=== PATIENT | female | born 1955 | race Caucasian/White ===

== ENCOUNTER 2016-07-21 10:44 | Emergency (ER) | payer OTHER ==
[2016-07-21 12:31] VITALS: BP 111/74
--- NOTE | 2016-07-21 13:10 | UC ---
Respiratory Complaint HPI - HPI Summary HPI Summary: About 5 days ago started with lots of nasal and sinus congestion/drainage, now in the last day or two harsh cough has become more prominent. Denies fever or trouble breathing, no hx of lung disease. Does take care of young grandson on weekends and has had frequent URIs this winter and spring. - History of Current Complaint Chief Complaint: UCRespiratory Stated Complaint: RESP ISSUE CONGESTION Time Seen by Provider: 07/21/16 12:53 Hx Obtained From: Patient ?: No Onset/Duration: Gradual Onset, Lasting Days Timing: Constant Severity Initially: Mild Severity Currently: Moderate Character: Cough: Productive Aggravating Factors: Exertion, Deep Breaths Alleviating Factors: Upright Position Associated Signs And Symptoms: Positive: URI, Nasal Congestion. Negative: Fever , Hoarseness - Allergies/Home Medications Allergies/Adverse Reactions: Allergies Allergy/AdvReac Type Severity Reaction Status Date / Time No Known Allergies Allergy Verified 07/21/16 12:31 Home Medications: Home Medications NK [No Home Medications Reported] 07/21/16 [History Confirmed 07/21/16] PMH/Surg Hx/FS Hx/Imm Hx Psychological History Of: Reports: Depression - HX OF IN THE PAST - Surgical History Surgical History: Yes Surgery Procedure, Year, and Place: LASIK EYE SURGERY - Family History Known Family History: Negative: Blood Disorder - Social History Lives: With Family Alcohol Use: Occasionally Substance Use Type: None Smoking Status (MU): Former Smoker Amount Used/How Often: 1/2 PPD X 10 YEARS When Did the Patient Quit Smoking/Using Tobacco: 28 YEARS AGO Review of Systems Constitutional: Fatigue Skin: Negative Eyes: Negative ENT: Sore Throat, Nasal Discharge Respiratory: Cough Cardiovascular: Negative Gastrointestinal: Negative Genitourinary: Negative Motor: Negative Neurovascular: Negative Musculoskeletal: Negative Neurological: Negative Psychological: Negative All Other Systems Reviewed And Are Negative: Yes Physical Exam Triage Information Reviewed: Yes Appearance: Well-Appearing, No Pain Distress, Well-Nourished Vital Signs: Initial Vital Signs Temp 98.4 F 07/21/16 12:28 Pulse 61 07/21/16 12:28 Resp 16 07/21/16 12:28 BP 111/74 07/21/16 12:28 Pulse Ox 100 07/21/16 12:28 Vital Signs Reviewed: Yes Eye Exam: Normal Eyes: Positive: Conjunctiva Clear ENT: Positive: Pharynx normal, Nasal congestion, Nasal drainage, TMs normal. Negative: Tonsillar swelling, Tonsillar exudate - s/p tonsillectomy Dental Exam: Normal Dental: Negative: Percussion Tenderness @ Neck exam: Normal Respiratory Exam: Other - harsh cough noted Respiratory: Positive: Chest non-tender, Lungs clear, Normal breath sounds, No respiratory distress, No accessory muscle use Cardiovascular Exam: Normal Cardiovascular: Positive: RRR, No Murmur Musculoskeletal Exam: Normal Neurological Exam: Normal Neurological: Positive: Alert Psychological Exam: Normal Skin Exam: Normal UC Diagnostic Evaluation - Laboratory O2 Sat by Pulse Oximetry: 100 Respiratory Course/Dx - Course Course Of Treatment: Offered pt albuterol inhaler and codeine for cough, pt does not feel these are necessary at this point. Discussed s/sx of ABRS, pt will return or see PCP if sx persist or worsen. - Differential Dx/Diagnosis Provider Diagnoses: URI, likely viral Discharge - Discharge Plan Condition: Stable Disposition: HOME Patient Education Materials: Upper Respiratory Infection (ED) Additional Instructions: CHEST COLD (BRONCHITIS) You have an an infection or inflammation of the air passageways in your lungs. Symptoms usually include cough, low grade fever, shortness of breath, and wheezing. The cough usually persists for a couple of weeks, sometimes longer. We used to think antibiotics were necessary to treat bronchitis, but studies have shown that respiratory viruses cause the disease in the vast majority of cases. Like head colds, most cases of bronchitis get better without antibiotics. We may prescribe antibiotics if we believe bacteria are damaging your airways, or if there's high risk the bronchitis will worsen into pneumonia (such as for individuals with emphysema or other lung disease). Increase your fluid intake. A cool mist humidifier may make your lungs more comfortable. An expectorant (cough medicine that loosens phlegm) can help. Recovery from bronchitis can be somewhat slow, but you should not have any significant worsening or new fevers. As long as you can breathe easily and you continue to have steady improvement, it is not important how many days it takes you to get better. Call or return if you develop increasing fever, shortness of breath, chest pain , bloody sputum, or otherwise worsen. If you have not improved at all after several days, contact your primary care physician or return here.
== END 2016-07-21 13:16 | disposition home or self-care (01) ==
LOC: UCEAST 10:44
DX: J06.9 Acute upper respiratory infection, unspecified (principal)
CPT/HCPCS: 99211; G0463

== ENCOUNTER 2017-01-12 07:48 | Day surgery (SDC) | payer OTHER ==
[~2017-01-12 07:48] MED LIST: Buffered Lidocaine 0.9% SYRIN* 5 ML/SYR SYRINGE INTRADERM ONE
[2017-01-12] MEDS ORDERED: ceFAZolin 2 GM PREMIX (*) 2 GM/50 ML BAG IVPB ONE (08:10)
[2017-01-12] MEDS ORDERED: Buffered Lidocaine 0.9% SYRIN* 5 ML/SYR SYRINGE ONE (08:10)
[2017-01-12] MEDS ORDERED: fentaNYL* 50 MCG/ML 2 ML VIAL (100 MCG VIAL) ONE (08:52)
[2017-01-12] MEDS ORDERED: Midazolam* 1 MG/ML 2 ML VIAL (2 MG) ONE (08:52)
[2017-01-12] MEDS ORDERED: Lidocaine 1% INJ* 10 MG/ML 30 ML SDV ONE (08:56)
[2017-01-12] MEDS ORDERED: Dexamethasone IV* 4 MG/ML 1 ML (4 MG) ONE (08:56)
[2017-01-12] MEDS ORDERED: Bupivacaine 0.5% SDV PF* 30 ML VIAL ONE (08:57)
[2017-01-12] MEDS ORDERED: Ondansetron INJ* 2 MG/ML VIAL IV PRN (09:11)
[2017-01-12] MEDS ORDERED: Propofol* 10 MG/ML 20 ML BTL IV PUSH ONE (09:25)
[2017-01-12] MEDS ORDERED: Phenylephrine IV* 40 MCG/ML 10 ML SYRINGE ONE (10:22)
[2017-01-12 11:16] VITALS: BP 114/81
--- NOTE | 2017-01-12 13:10 | OP ---
DATE OF OPERATION: 01/12/17 - [facility] DATE OF : 57 SURGEON: Murali Kraft DPM STEEL MANAGER: None. ANESTHESIA: MAC with local. PRE-OP DIAGNOSIS: Painful bunion deformity with hallux limitus, left foot. POST-OP DIAGNOSIS: Painful bunion deformity with hallux limitus, left foot. OPERATIVE PROCEDURE: Bunionectomy with first metatarsal osteotomy and screw fixation in the left foot. PATHOLOGY: Degenerative bone. HEMOSTASIS: Pneumatic ankle tourniquet. ESTIMATED BLOOD LOSS: Less than 20 mL. MATERIALS: 3.0 mm cannulated Saniya screw. INDICATIONS: The patient with chronic and progressive left great toe joint pain and deformity with hypertrophic bone at the medial and dorsal aspect of the first metatarsal head, degenerative changes and lateral deviation of the great toe and chronic pain associated with the joint while walking and wearing shoes. She opts for surgery at this time to attempt to decrease the pain and improve her function. DESCRIPTION OF PROCEDURE: The patient was brought to the operating room, placed on the operating room table in supine position. The anesthesia department administered IV sedation and a peripheral nerve block was performed about the left forefoot with a 1:1 mixture of 1% lidocaine plain and 0.5% Marcaine plain. The left foot was prepped and draped in usual fashion. Next, the left foot was exsanguinated with an Esmarch bandage and pneumatic ankle tourniquet was inflated to 250 mmHg above a well-padded left ankle. Attention was directed to the dorsomedial aspect of the left great toe joint, where a curvilinear incision was made. The incision was deepened through subcutaneous tissues with care being taken to retract neurovascular structures and cauterize the superficial bleeders as needed. An inverted L capsular incision was made to allow for exposure of the joint. There was noted to be hypertrophic bone at the dorsal and medial aspect of the first metatarsal head. There was also noted to be partial and full thickness cartilaginous erosions, primarily at the medial aspect of the first metatarsal head and the respective medial base of the proximal phalanx. There was also noted to be some osteophytes around the dorsal and medial aspect of the base of the proximal phalanx. Next, a McGlamry elevator was needed to free plantar lateral adhesions and an intracapsular lateral release was performed. The extensor hallucis brevis tendon was also identified and transected. This allowed for relaxation of all lateral contractures. Next, a sagittal saw was used to resect the hypertrophic bone from the dorsal and medial aspect of the first metatarsal head and a rongeur was used to resect osteophytes in the base of the proximal phalanx. Next, a modified Chevron type first metatarsal osteotomy was performed with the apex just dorsal and proximal to the geometric center of the first metatarsal head. The plantar wing was cut, angled slightly plantar proximally to allow for some plantar flexion of the capital fragment. The dorsal wing was then cut and the capital fragment was transposed to the desired corrected position. Temporary fixation was achieved with the wire from screw set and the position was assessed with a C-arm. Next, using standard technique, a 3.0 mm Tapad cannulated screw was placed across the osteotomy site with care being taken to ensure that the tip of the screw did not penetrate into the joint. Temporary fixation was removed and the osteotomy was found to be solid with no detectable motion or gapping. The screw was 2 fingers tight. The C-arm was used to assess correction and fixation. The power davina was used to smoothen rough edges and the surgical site was flushed with copious amounts of normal sterile saline. A medial capsulorrhaphy was performed, resecting the redundant medial capsule. The capsule and periosteal tissues were reapproximated and secured with 2-0 Vicryl with holding the hallux in rectus position. The subcutaneous tissues were reapproximated with 4-0 Vicryl and skin was approximated with 5-0 nylon. A 12 mg of dexamethasone phosphate was infiltrated about the surgical site and the surgical site was dressed with 4x4 gauze, Xiomy, and light Coban wrap. The pneumatic ankle tourniquet was deflated about the left ankle and a prompt hyperemic response was noted in all 5 digits of the patient's left foot. Having appeared to have tolerated the procedures and anesthesia well, the patient was transported via cart from the operating room to Recovery in satisfactory condition. Capillary refill less than 3 seconds to all digits of the left foot. [id number]/[facility] #: [id number] [facility]
--- NOTE | 2017-01-13 12:51 | RAD ---
INDICATION: Left foot, no other history is provided COMPARISONS: None relevant TECHNIQUE: Fluoroscopy was provided for a surgical procedure. Total fluoroscopy time is: 24 seconds FINDINGS: Spot images demonstrate internal fixation of the first metatarsal. IMPRESSION: FLUOROSCOPY WAS PROVIDED FOR A SURGICAL PROCEDURE CPT II Codes: 6045F
== END 2017-01-12 12:07 | disposition home or self-care (01) ==
LOC: OREAST 07:48
PROVIDERS: ATTEND Podiatrist Foot Surgery
DX: M21.612 Bunion of left foot (principal); M20.5X2 Other deformities of toe(s) (acquired), left foot; M25.775 Osteophyte, left foot
CPT/HCPCS: 76000; 88304; 88311; C1713; C1776; J0690; J1100; J2001; J2250; J2704; J3010

== ENCOUNTER 2017-06-29 06:26 | Day surgery (SDC) | payer OTHER ==
[~2017-06-29 06:26] MED LIST changes: +Dexamethasone IV* 4 MG/ML 1 ML (4 MG) IV SLOW PU ONE; +Famotidine IV* 10 MG/ML 2 ML (20 mg) IV ONE
[2017-06-29] MEDS ORDERED: ceFAZolin 2 GM PREMIX (*) 2 GM/50 ML BAG IVPB ONE (06:35)
[2017-06-29] MEDS ORDERED: Famotidine TAB* 20 MG ONE (06:35)
[2017-06-29] MEDS ORDERED: Dexamethasone IV* 4 MG/ML 1 ML (4 MG) ONE ×2 (06:35→07:09)
[2017-06-29] MEDS ORDERED: Lidocaine 1% INJ* 10 MG/ML 30 ML SDV ONE (07:08)
[2017-06-29] MEDS ORDERED: Midazolam* 1 MG/ML 2 ML VIAL (2 MG) ONE (07:08)
[2017-06-29] MEDS ORDERED: fentaNYL* 50 MCG/ML 2 ML VIAL (100 MCG VIAL) ONE (07:08)
[2017-06-29] MEDS ORDERED: Bupivacaine 0.5% SDV PF* 10-30ML VIAL ONE (07:09)
[2017-06-29] MEDS ORDERED: PROCHLORPERAZINE INJ 5 MG/ML 2 ML VIAL IV PRN (07:15)
[2017-06-29] MEDS ORDERED: oxyCODONE TAB* 5 MG TAB PO PRN (07:15)
[2017-06-29] MEDS ORDERED: oxyCODONE/Acetamin 5/325 MG* TAB PO PRN (07:15)
[2017-06-29] MEDS ORDERED: fentaNYL* 50 MCG/ML 2 ML VIAL (100 MCG VIAL) IV PRN (07:15)
[2017-06-29] MEDS ORDERED: Ondansetron INJ* 2 MG/ML VIAL IV PRN (07:15)
[2017-06-29] MEDS ORDERED: Acetaminophen TAB* 325 MG PO PRN (07:15)
[2017-06-29] MEDS ORDERED: Naloxone* 0.4 MG/ML 1 ML VIAL IV PRN (07:15)
[2017-06-29] MEDS ORDERED: HYDROmorphone INJ* 1 MG/ML CARPUJECT SYRINGE IV PRN (07:15)
[2017-06-29] MEDS ORDERED: Lidocaine 2% PF * 5 ML VIAL ONE (07:53)
[2017-06-29] MEDS ORDERED: Ketorolac INJ* 30 MG/ML 1 ML VIAL ONE (07:53)
[2017-06-29] MEDS ORDERED: Propofol* 10 MG/ML 20 ML BTL IV PUSH ONE (07:53)
[2017-06-29] MEDS ORDERED: Sodium Chloride 0.9%* 10 ML ONE (07:57)
[2017-06-29] MEDS ORDERED: EPHEDrine (Pressors)* 50 MG/ML VIAL ONE (07:57)
[2017-06-29 08:38] VITALS: BP 121/87
--- NOTE | 2017-06-29 10:43 | OP ---
OPERATIVE REPORT: DATE OF OPERATION: 06/29/17 DATE OF : 57 SURGEON: Murali Kraft DPM GRAD[address] 6 [address] TEACHER: None. ANESTHESIA: MAC with local. PRE-OP DIAGNOSIS: Painful bunion with hallux limitus, right foot. POST-OP DIAGNOSIS: Painful bunion with hallux limitus, right foot. OPERATIVE PROCEDURE: Cheilectomy, right great toe joint. PATHOLOGY: Degenerative bone and synovitis from right great foot toe joint. HEMOSTASIS: Pneumatic ankle tourniquet. ESTIMATED BLOOD LOSS: Less than 5 mL. INDICATIONS: The patient with chronic right forefoot pain and deformity about the right great toe letty int with hypertrophied bone medially and dorsally, decreased range of motion, mild lateral deviation of the great toe, pain with walking and wearing shoes. She opts for surgery at this time to attempt to decrease the pain and improve her function. DESCRIPTION OF PROCEDURE: The patient was brought to the operating room, placed on the operating niles m table in supine position. The anesthesia department administered IV sedation and a peripheral nerv e block was performed about the right foot with a 1:1 mixture of 1% lidocaine plain and 0.5% Marcaine plain. The right foot was then prepped and draped in usual fashion. The right foot was then exsang uinated with an Esmarch bandage and pneumatic ankle tourniquet was inflated to 250 mmHg above a well- padded right ankle. Attention was directed to the dorsomedial aspect of the right great toe joint, w here a linear incision was made. The incision was deepened through subcutaneous tissues with care carie ng taken to retract neurovascular structures and cauterize the superficial bleeders as needed. This w as carried down to the right great toe joint where inverted L capsular incision was made. This allow ed exposure of the joint. There was noted to be hypertrophied bone and osteophytes at the dorsomedia l and medial aspect of the 1st metatarsal head. Also some mild osteophyte proliferation at the adjac ent base of the proximal phalanx of the right great toe. There was also noted to be proximal full th ickness cartilaginous erosions in the 1st metatarsal head medial to the arnoldo, more distal and fully plantar orientation. The sesamoid apparatus also had some adhesions, which were freed with a McGlam ry elevator. Dissection carried into the 1st metatarsal space where a traditional lateral release wa s performed. The extensor hallucis brevis tendon was also identified and transected. This allowed f or relaxation of all lateral contractures. Next, using a sagittal saw the osteophytes were resected off the 1st metatarsal head and a rongeur was used to also resect the osteophytes from the base of th e proximal phalanx. A power davina was used to smooth rough edges. The surgical site was flushed with copious amounts of normal sterile saline. The cartilaginous surface of the 1st metatarsal head and the base of the proximal phalanx was inspected. No loose cartilage was identified. The medial capsul orrhaphy was performed resecting a small amount of the redundant medial capsule. Some of the specime n that was also sent with included some hypertrophic synovitis, which is debrided from the dorsal asp ect of the joint. The surgical site was again flushed with copious amounts of normal sterile saline and the periosteal and capsular tissues were reapproximated and secured with 2-0 Vicryl. Subcutaneou s tissues were reapproximated in layers with 4-0 Vicryl and skin was reapproximated and secured with 5-0 nylon. 12 mg dexamethasone phosphate was infiltrated about the surgical site and the incision wa s dressed with Xeroform gauze and a leg compression dressing consisting of 4 x 4 gauze, Xiomy, and li ght Coban wrap. The pneumatic ankle tourniquet was deflated about the right ankle and a prompt hype remic response was noted in all 5 digits of the patient's right foot. Having appeared to have tolerat ed the procedure and anesthesia well, the patient was transported via cart from the operating room to Recovery in satisfactory condition with cap refill less than 3 seconds to all digits of the right fo ot. [id number]/[facility] #: [id number]
== END 2017-06-29 09:00 | disposition home or self-care (01) ==
LOC: OREAST 06:26
PROVIDERS: ATTEND Podiatrist Foot Surgery
DX: M21.611 Bunion of right foot (principal); M20.5X1 Other deformities of toe(s) (acquired), right foot; Z87.891 Personal history of nicotine dependence
CPT/HCPCS: 88304; 88311; A9270-GY; J0690; J1100; J1885; J2250; J2704; J3010

== ENCOUNTER 2019-02-14 09:57 | Day surgery (SDC) | payer OTHER ==
[~2019-02-14 09:57] MED LIST changes: -Buffered Lidocaine 0.9% SYRIN* 5 ML/SYR SYRINGE INTRADERM ONE; +Buffered Lidocaine 1% SYRIN* 1 ML/SYRINGE INTRADERM ONE; -Dexamethasone IV* 4 MG/ML 1 ML (4 MG) IV SLOW PU ONE; +Lactated Ringers 1000 ML Bag* 1,000 ML IV SCH
[2019-02-14] MEDS ORDERED: ceFAZolin 2 GM PREMIX in ORs 2 GM/50 ML BAG ONE (10:32)
[2019-02-14] MEDS ORDERED: Famotidine IV* 10 MG/ML 2 ML (20 mg) ONE (10:34)
[2019-02-14] MEDS ORDERED: Lidocaine 1% INJ* 10 MG/ML 30 ML SDV ONE (11:43)
[2019-02-14] MEDS ORDERED: Dexamethasone IV* 4 MG/ML 1 ML (4 MG) ONE (11:44)
[2019-02-14] MEDS ORDERED: Bupivacaine 0.5% SDV PF* 30ML VIAL ONE (11:44)
[2019-02-14] MEDS ORDERED: Acetaminophen TAB* 325 MG PO PRN (11:54)
[2019-02-14] MEDS ORDERED: DiMENhydriNATE IV* 50 MG/ML VIAL IV PUSH PRN (11:54)
[2019-02-14] MEDS ORDERED: oxyCODONE TAB* 5 MG TAB PO PRN (11:54)
[2019-02-14] MEDS ORDERED: Naloxone* 0.4 MG/ML 1 ML VIAL IV PRN (11:54)
[2019-02-14] MEDS ORDERED: Midazolam* 1 MG/ML 5 ML VIAL (5 MG) ONE (12:01)
[2019-02-14] MEDS ORDERED: Ketorolac INJ* 30 MG/ML 1 ML VIAL ONE (12:26)
[2019-02-14] MEDS ORDERED: Ondansetron INJ* 2 MG/ML VIAL ONE (12:26)
[2019-02-14] MEDS ORDERED: Propofol* 10 MG/ML 20 ML BTL ONE (12:26)
[2019-02-14] MEDS ORDERED: Lidocaine 2% PF * 5 ML VIAL ONE (12:27)
[2019-02-14] MEDS ORDERED: HYDROmorphone INJ* 0.5 MG/0.5 ML SYRINGE ONE (12:28)
[2019-02-14 14:03] VITALS: BP 117/85
--- NOTE | 2019-02-14 21:45 | OP ---
DATE OF OPERATION: 02/14/19 [facility] DATE OF : 57 SURGEON: Murali Kraft DPM. OTOLARYNGOLOGY SURGEON: None. ANESTHESIA: MAC with local. PRE-OP DIAGNOSIS: Bunion deformity with hallux limitus, right foot. POST-OP DIAGNOSIS: Bunion deformity with hallux limitus, right foot. OPERATIVE PROCEDURE: Bunionectomy with first metatarsal osteotomy, right foot. PATHOLOGY: Degenerative bone. HEMOSTASIS: Pneumatic ankle tourniquet. ESTIMATED BLOOD LOSS: Less than 20 cc. MATERIALS: A 3.0-mm cannulated Saniya screw. INDICATIONS: The patient with chronic and progressive right great toe joint pain, stiffness, and bunion deformity. She had previous cheilectomy to address some osteophyte and arthritic changes. She has continued to have pain and has been determined that alignment of the joint needs to be improved to address the bunion deformity. The patient opts for surgery at this time to attempt to decrease the pain and improve the function. DESCRIPTION OF PROCEDURE: The patient was brought to the operating room and placed on the operating table in the supine position. The anesthesia department administered IV sedation and a peripheral nerve block was performed about the right foot with a 1:1 mixture of 1% lidocaine plain and 0.5% Marcaine plain. The right foot was then prepped and draped in the usual fashion. The right foot was then exsanguinated with an Esmarch bandage. The pneumatic ankle tourniquet was inflated to 250 mmHg about a well-padded right ankle. Attention was directed to the dorsomedial aspect of the right great toe joint where there was a previous well healed surgical scar. This was used again at the incision lengthened slightly more proximally and distally. Dissection was carried into the subcutaneous tissue with tissue planes reestablished and care was taken to retract the neurovascular structures and cauterize superficial bleeders as needed. An inverted L capsular incision was made and allowed for exposure of the joint. The periosteal and capsular tissues were reflected and allowed for exposure of the joint. Having previous cheilectomy, there was minimal hypertrophic bone to be resected, some of this was further re-modelled with a sagittal saw, power davina, and rongeur. Knee joint was inspected and there was an area of full-thickness cartilaginous erosions more at the dorsal aspect of the first metatarsal head, but this was fairly localized. The remainder of the joint was grossly intact. A McGlamry elevator was used to free some plantar adhesions. The surgical site was flushed with copious amounts of normal sterile saline. Next, a Chevron type first metatarsal head osteotomy was performed from medial to lateral. The apex was just dorsal and proximal to the geometric center of the first metatarsal head. The plantar wing was cut, angled slightly plantar proximally. The dorsal wing was cut taken a small parallel wedge of bone to allow for compression and plantar flexion of the capital fragment. This being done, the capital fragment was transposed and it was corrected in desired position and temporary fixation was achieved with a wire from the screw set. Position was assessed with a C-arm and using standard technique, a 3.0-mm cannulated Saniya screw was placed across the osteotomy site where the care was taken to ensure that the screw did not penetrate the joint. This was checked with a C-arm as well as direct inspection. With a temporary fixation removed, the osteotomy was inspected and found to be solid with no detectable motion or gapping. The screw was 2 fingers tight. The range of motion of the joint was significantly improved. The redundant medial shelf of bone was resected and a power davina was used to smooth rough edges. The surgical site was flushed with copious amounts of normal sterile saline. It should be noted prior to the osteotomy, the lateral capsule and adductor hallucis tendon was then further released and the portion of lateral sesamoid ligament to allow for relaxation of some lateral contractures. With the osteotomy and fixation complete, it was determined that was not necessary, and the periosteal and capsular tissues were reapproximated and secured with 2-0 Vicryl. The subcutaneous tissues were reapproximated with 4-0 Vicryl and skin was closed with 5-0 nylon. Dexamethasone phosphate 12 mg was infiltrated about the surgical site and the incision was dressed with Xeroform gauze, a light mildly compressive dressing was applied with 4x4 gauze, Xiomy, and light Coban wrap. The pneumatic ankle tourniquet was deflated about the right ankle and a prompt hyperemic response was noted about all 5 digits of the patient's right foot. Having appeared to tolerate the procedure and anesthesia well, the patient was transported via cart from the operating room to Recovery in satisfactory condition with capillary refill less than 3 seconds to all digits of the right foot. [id number]/[facility] #: [id number] [facility]TDD
== END 2019-02-14 14:20 | disposition home or self-care (01) ==
LOC: OREAST 09:57
PROVIDERS: ATTEND Podiatrist Foot Surgery
DX: M21.611 Bunion of right foot (principal); M20.5X1 Other deformities of toe(s) (acquired), right foot; Z87.891 Personal history of nicotine dependence; J30.89 Other allergic rhinitis
CPT/HCPCS: 76000; 88304; 88311; C1713; C1776; J0690; J1100; J1170; J1885; J2250; J2405; J2704; J3490